=== PATIENT | female | born 1960 | race Two or more races ===

== ENCOUNTER → 2020-08-30 | Outpatient (CLI) | payer OTHER ==
--- NOTE | 2020-08-30 15:29 | Diagnostic Imaging Report ---
CLINICAL INDICATION:Chest and abdominal pain TECHNIQUE: IV administration nonionic contrast. Arterial phase spiral acquisitions obtained through the chest, abdomen, and pelvis. Multiplanar and 3-D reconstructions were generated. Total dose length product 940 mGycm. CTDIvol(s) 6, 42, 15 mGy. Radiation dose was minimized using automated exposure control COMPARISON: none FINDINGS Vascular: There is no evidence of thoracic aortic aneurysm or dissection. Normal branching anatomy and caliber of the great neck vessels. No evidence of abdominal aortic aneurysm or dissection. No evidence of thoracic or abdominal aortic aneurysm or dissection or other acute vascular pathology there is mild to moderate narrowing of the left renal artery. Otherwise normal caliber and branching anatomy of the large abdominal visceral vessels. The inferior mesenteric artery is patent. The bilateral common and external iliac arteries are patent, nonstenotic there is four-chamber cardiomegaly. The exam protocol is not tailored for exclusion of pulmonary embolus, but the pulmonary arteries are well-opacified and there is no evidence of acute pulmonary embolus, pulmonary arterial hypertension, or right heart strain. Chest: There is a mass in the periphery of the right lower lobe. This measures 4.4 x 3.6 cm in diameter. No other masses or nodules. There is mosaic attenuation of the lungs bilaterally, predominantly in the lower lobes. There is some atelectasis at the left lung base. No dense consolidation demonstrated. No pericardial effusion. No mediastinal or hilar mass or adenopathy. Unremarkable esophagus. Unremarkable thyroid. Abdomen pelvis: There is a broad-based lower pelvic ventral hernia which contains a segment of the ascending and proximal transverse colon. No evidence of obstruction or strangulation. The appendix is not definitely visualized, but there are no findings to suggest acute appendicitis. Normal caliber small bowel. No free or loculated intraperitoneal gas or fluid. The stomach and duodenum are unremarkable. The liver is diffusely hypoattenuating, consistent with fatty change. No focal abnormality. The gallbladder, bile ducts, pancreas are unremarkable. There is and ill-defined area of low-attenuation in the upper pole of the spleen. The kidneys are unremarkable. Calcifications within the uterus likely represent fibroids. No pelvic mass or adenopathy. IMPRESSION: No evidence of aortic dissection, aortic aneurysm, or other acute thoracic or abdominal vascular 4.4 x 3.6 cm right lower lobe lung mass. Suspicious for neoplasm. Cardiomegaly Mosaic attenuation pattern of the lungs. This is nonspecific, but in view of the above finding quite likely on the basis of mild pulmonary edema Subtle ill-defined low-attenuation area in the spleen, could represent an area of inflammation/infection. Neoplasm also possible Broad-based lower pelvic wall ventral hernia containing a segment of the ascending and proximal transverse colon, no evidence of obstruction or strangulation Fatty liver Uterine fibroids Mild stenosis: Less than 50% diameter Moderate stenosis: 50-69% diameter Severe stenosis: 70+% diameter All stenosis measurements are based on NASCET criteria, using normal distal vessel diameter as the denominator The CT scanner at [facility] is accredited by the [employer] and the scans are performed using protocols designed to limit radiation exposure to as low as reasonably achievable to attain images of sufficient resolution adequate for diagnostic evaluation.
== END | disposition home or self-care (01) ==
LOC: CAT 13:24
DX: R91.8 Other nonspecific abnormal finding of lung field (principal); I51.7 Cardiomegaly; K76.0 Fatty (change of) liver, not elsewhere classified; D25.9 Leiomyoma of uterus, unspecified
CPT/HCPCS: 71275; 74175; Q9967